=== PATIENT | female | born 1990 | race Asian ===

== ENCOUNTER 2016-10-15 07:02 | Emergency (ER) | payer SELFPAY ==
--- NOTE | ~2016-10-15 | US134 ---
[facility] A Service of [facility] RADIOLOGY TEXT RESULTS PATIENT: ARMINDA PURI LOCATION: [facility] : [birth year] UNIT #: [id number] AGE: [address]: Juan Carlos Mcgowan MD SEX: F ORDER DR: [id number] [facility] [address] [place], [place] [address] [id number] E MR#: [id number] Acc #: [id number] NAME: ARMINDA PURI : 1990 SEX: F STUDY DATE/TIME: 10/15/2016 7:34 UNIT: [facility] ROOM: STUDY DESCRIPTION: US Transvaginal Attending Physician: Juan Carlos Mcgowan M.D. Referring Physician: Self Referral-Refer Use Only Ordering Physician: Hailey Taylor M.D. Primary Care Physician: Primary Care Physician No MEDICAL IMAGING REPORT This report is preliminary unless electronic signature is present EXAM Transvaginal ultrasound 10/15 INDICATIONS Pelvic pain for 1 day. No bleeding. Beta hCG value is 4550 million international units per mL. TECHNIQUE Transvaginal imaging is performed of the pelvis in multiple planes. COMPARISON No comparison FINDINGS Both ovaries are normal and show perfusion by Doppler. No adnexal masses are identified. There is an intrauterine . There is a tiny gestational sac measuring about 6 mm in 1 dimension. This corresponds to a gestational age of about 5 weeks 2 days. There is a small eccentric area of soft tissue within the gestational sac which likely represents a developing embryo. Dedicated obstetrical follow up is recommended. IMPRESSION There is a very early intrauterine identified. Dedicated obstetrical followup recommended. No discrete pole or yolk sac is identified at this time. The ovaries are normal. Dictated by... Hema Peterson Jr., M.D. THIS IS AN ELECTRONICALLY VERIFIED REPORT Hema Peterson Jr., M.D. at 10/15/2016 4:47 PM RLK/to [facility] A Service of [facility] RADIOLOGY TEXT RESULTS PATIENT: ARMINDA PURI [id number] : [birth year] UNIT #: [id number] AGE: [address]: Juan Carlos Mcgowan MD SEX: F ORDER DR: TD: 10/15/2016 11:27 JOB #: [id number] MEDICAL IMAGING REPORT Page 1 of 1 COPY
--- NOTE | ~2016-10-15 | US6 ---
[facility] A Service of [facility] RADIOLOGY TEXT RESULTS PATIENT: ARMINDA PURI LOCATION: [facility] : [birth year] UNIT #: [id number] AGE: [address]: Juan Carlos Mcgowan MD SEX: F ORDER DR: [id number] [facility] [address] [place], [place] [address] [id number] E MR#: [id number] Acc #: [id number] NAME: ARMINDA PURI : 1990 SEX: F STUDY DATE/TIME: 10/15/2016 11:42 UNIT: [facility] ROOM: STUDY DESCRIPTION: US Abdominal Limited Attending Physician: Juan Carlos Mcgowan M.D. Referring Physician: Erin Self Referred Ordering Physician: Juan Carlos Mcgowan M.D. Primary Care Physician: No Primary Care Physician MEDICAL IMAGING REPORT This report is preliminary unless electronic signature is present EXAM The study is a limited abdomen ultrasound. HISTORY Rule out appendicitis. Pain since 2 a.m. Saturday. Painful to touch. Quantitative beta hCG 4550. Last menstrual period 09/08/2016. FINDINGS Real-time ultrasonography of the right lower quadrant shows no abnormal fluid collection. No identifiable normal or abnormal appendix is suggested. IMPRESSION Limited ultrasound of the right upper quadrant shows no identifiable normal or abnormal appendix. On basis of this examination alone, appendicitis cannot be included or excluded as a cause for the patient's symptoms. No abnormal fluid collection is seen. Dictated by... Everton Weir M.D. THIS IS AN ELECTRONICALLY VERIFIED REPORT Everton Weir M.D. at 10/16/2016 6:04 PM Baldo TD: 10/15/2016 15:21 JOB #: [id number] MEDICAL IMAGING REPORT Page 1 of 1 COPY
[2016-10-15 03:42] LABS: URINE SOURCE CLEAN CATCH
[2016-10-15 03:56] LABS: URINE APPEARANCE CLEAR; URINE BILIRUBIN NEG (NEG); URINE BLOOD NEG (NEG); URINE COLOR YELLOW; URINE GLUCOSE NEG (NEG); URINE KETONE NEG (NEG); URINE LEUKOCYTE ESTERASE 1+ (NEG); URINE NITRATE NEG (NEG); URINE PH 7.5 (5-8); URINE PROTEIN NEG (NEG); URINE SPECIFIC GRAVITY 1.022 (1.003-1.035); URINE UROBILINOGEN 0.2 MG/DL (NEG)
[2016-10-15 03:58] LABS: CULTURE INDICATED? YES; URINE BACTERIA AUWI NEG (NEGATIVE); URINE SQUAMOUS EPITHELIAL CELL OCC /[HPF]
[2016-10-15 04:35] LABS: BASOPHIL% 0.2 % (0-2.5); EOSINOPHIL# 0.2 X10e3 (0-0.7); HEMATOCRIT 37.3 % (35.0-45.0); HEMOGLOBIN 12.1 gm/dL (12.0-16.0); LYMPHOCYTE% 10.3 % (17.0-45.0); MEAN CELL VOLUME 85.2 FL (83-96); MEAN CORPUSCULAR HEMOGLOBIN 27.8 PG (28-34); MEAN CORPUSCULAR HGB CONC 32.6 g/dL (30-36); MEAN PLATELET VOLUME 7.7 FL (6.5-11.5); MONOCYTE# 0.9 X10e3 (0-1.0); NEUTROPHIL% 78.5 % (40-75); PLATELET COUNT 216 X10e3 (140-420); RED BLOOD COUNT 4.37 X10e (3.90-5.30); RED CELL DISTRIBUTION WIDTH 13.6 % (11.0-15.5); WHITE BLOOD COUNT 10.1 X10e3 (4.0-10.5)
[2016-10-15 04:36] LABS: DIFF IND NO
[2016-10-15 05:03] LABS: BUN/CREATININE RATIO 11.42; CALCIUM SERUM 8.7 mg/dL (8.4-10.2); CREATININE SERUM 0.7 mg/dL (0.6-1.4); GLOM FILT RATE Estimated 120.4 mL/min (>60); POTASSIUM 3.2 mmol/L (3.5-5.1)
[2016-10-15 06:49] LABS: BILIRUBIN, DIRECT 0.1 mg/dL (0.0-0.2); BILIRUBIN,INDIRECT 0.7 mg/dL (0.0-0.9); BILIRUBIN,TOTAL 0.8 mg/dL (0.2-2.0)
== END 2016-10-15 13:56 | disposition home or self-care (01) ==
LOC: CED 07:02
PROVIDERS: Emergency Medicine; Student in an Organized Health Care Education/Training Program
DX: O99.89 Other specified diseases and conditions complicating pregnancy, childbirth and the puerperium (principal); R10.31 Right lower quadrant pain; Z3A.01 Less than 8 weeks gestation of pregnancy
CPT/HCPCS: 36415; 76705; 76830; 80048; 80076; 81003; 83690; 84702; 84703; 85025; 87086; 96374; 96375; 99284; J2270